=== PATIENT | male | born 1970 | race Caucasian/White ===

== ENCOUNTER 2020-02-09 13:13 | Emergency (ER) | payer BC, SELFPAY ==
[2020-02-09 13:15] VITALS: BP 174/78; PULSE 86; RESP 18; TEMP 36.2; O2SAT 99
--- NOTE | 2020-02-09 15:37 | ED.SKABFB ---
HPI - Skin/Abscess/Foreign Bdy General Chief complaint: Skin/Abscess/Foreign Body Stated complaint: SKIN ISSUES Time Seen by Provider: 02/09/20 14:44 Source: patient Mode of arrival: ambulatory Limitations: no limitations History of Present Illness HPI narrative: This is a 49-year-old male that presents the emergency department for wound to the left upper extremity for the last couple of days. Reports increasing redness and swelling. Denies drainage from the area. Reports he had one on the right side of his face which is now healed. Denies fever. Related Data Home Medications Medication Instructions Recorded Confirmed amlodipine [Norvasc] 02/09/20 02/09/20 losartan-hydrochlorothiazide tablet 02/09/20 Allergies Allergy/AdvReac Type Severity Reaction Status Date / Time No Known Allergies Allergy Verified 02/09/20 13:14 Review of Systems Review of Systems: Narrative: CONSTITUTIONAL: Denies fever SKIN: Reports erythema All systems reviewed & are unremarkable except as noted in HPI and below PMFSH Past Medical History Medical History (Updated 02/09/20 @ 15:42 by Michelle Cadena PA-C) History of depression History of hypertension Social History Social History Gender identity (if verbalized by the patient): Male Exam Narrative: Exam Narrative: GENERAL: Well-appearing, well-nourished, and in no acute distress. HEAD: Normocephalic, atraumatic. EYES: EOMI. EXTREMITIES: Normal range of motion. No edema. Left wrist with small (1.5cm) nodule that is erythematous, no drainage noted. No fluctuance SKIN: Warm, dry, no rash. NEURO: No focal deficits. Alert and oriented x3. PSYCH: Normal mood and affect Course Vital Signs Vital signs: Vital Signs Temperature 97.2 F L 02/09/20 13:15 Pulse Rate 86 02/09/20 13:15 Respiratory Rate 18 02/09/20 13:15 Blood Pressure 174/78 H 02/09/20 13:15 Pulse Oximetry 99 02/09/20 13:15 Temperature 97.2 F L 02/09/20 13:15 Pulse Rate 86 02/09/20 13:15 Respiratory Rate 18 02/09/20 13:15 Blood Pressure 174/78 H 02/09/20 13:15 Pulse Oximetry 99 02/09/20 13:15 MDM - Skin/Abscess/Foreign Bdy MDM Narrative Medical decision making narrative: Patient presents to the emergency department for a wound to the left arm. He is afebrile and nontoxic-appearing. Reports history of similar occurrence in the past. No fluctuance to suggest fluid collection. Patient will be started on oral antibiotics. He is to follow-up with primary care doctor. He was given warnings to return to the ER Critical Care Time Critical Care Time Critical Care Time: No Discharge Plan Discharge Clinical Impression: Cellulitis Qualifiers: Site of cellulitis: extremity Site of cellulitis of extremity: upper extremity Laterality: left Qualified Code(s): L03.114 - Cellulitis of left upper limb Patient Disposition: Home, Self-Care Condition: Stable Instructions: Antibiotic Form, Cellulitis (ED) Additional Instructions: Return if symptoms worsen or concerns: any increase in redness, swelling, pain, or fever over 101 Take antibiotics as directed. Clean wound with mild soapy water. Apply antibiotic ointment and clean dressing at least three times daily. Warm compresses 3 times a day for 30 minutes each Follow up with your primary care in the next 2-3 days for re-evaluation Prescriptions: New clindamycin HCl 300 mg capsule 300 mg PO Q6H 7 Days Qty: 28 RF: 0 No Action amlodipine [Norvasc] 5 mg tablet RF: 0 losartan-hydrochlorothiazide 100-12.5 mg tablet RF: 0 Follow-up/Referrals: PHYSICIAN,CHIEF OF SERVICE [Primary Care Provider] -
[2020-02-09 15:48] VITALS: BP 150/86; PULSE 100; RESP 17; O2SAT 100
== END 2020-02-09 15:49 | disposition home or self-care (01) ==
PROVIDERS: Emergency Provider Emergency Medicine
DX: L03.114 Cellulitis of left upper limb (principal); I10 Essential (primary) hypertension
CPT/HCPCS: 96372; 99283

== ENCOUNTER 2025-01-06 03:18 | Observation (INO) | payer BC, OTHER, SELFPAY ==
[2025-01-06] VITALS (24 sets, daily range): BP systolic 124–157; BP diastolic 66–102; PULSE 67–92; RESP 14–29; TEMP 36.4–36.7; O2SAT 95–100; BMI 34.9
--- NOTE | ~2025-01-06 | CT_ITS ---
Clinical Indication: Altered mental status, headache CT Scan of the Chest, Abdomen, and Pelvis with Contrast: Technique: Contiguous sections were acquired throughout the chest, abdomen, and pelvis after intraven ous administration of 100 cc of Omnipaque 350. Dose reduction technique was used on this scan by muriel randhawa automated exposure control and iterative reconstruction technique. The dose-length product (DL P) was 967.00 mGy-cm. Findings: There is no evidence of any significant mediastinal, hilar or axillary lymphadenopathy. No aortic ane urysm or dissection. There is no evidence of pleural or pericardial effusion. The lungs are clear. No pulmonary nodules or infiltrates are noted. The liver, spleen, pancreas, gallbladder, adrenals and kidneys are within normal limits. No evidence of aortic aneurysm. No lymphadenopathy. No bowel obstruction or bowel wall thickening. There is no evidence to suggest acute appendicitis. Urinary bladder is unremarkable. No pelvic mass seen. No ascites. Impression: No significant abnormalities seen. Reviewed, dictated and finalized at [facility]. Impression: No significant abnormalities seen.
--- NOTE | ~2025-01-06 | XR_ITS ---
Portable chest x-ray Comparison: 04/15/2019 Clinical History: Altered mental status Findings: Lungs are clear, without focal consolidation or pleural effusion. Cardiomediastinal silho uette is stable. Bones and soft tissues are unremarkable. Impression: Clear lungs. Reviewed, dictated and finalized at location . Impression: Clear lungs.
--- NOTE | ~2025-01-06 | MR_ITS ---
EXAMINATION: MR brain/brain stem wo/w con DATE: 01/07/2025 13:12 INDICATION: Confusion, photophobia and severe headache TECHNIQUE: Magnetic resonance imaging (MRI) of the brain and brainstem was performed without and with 20 mL Multihance intravenous contrast. Sequences included sagittal and axial T1-weighted SE, axial d iffusion-weighted FS SE, axial 3D SWAN, axial T2-weighted FLAIR, and axial T2-weighted FSE. Postcontr ast axial and coronal T1-weighted SE was obtained. Apparent diffusion coefficient (ADC) maps were cre ated. COMPARISON: None. FINDINGS: Small region of restricted diffusion consistent with acute infarct at the posterior right lentiform n ucleus. No intracranial hemorrhage or abnormal intracranial mass lesion. A few scattered small foci o f nonspecific increased T2-weighted signal intensity in the cerebral white matter, predominantly invo lving the periventricular white matter. There are no intraparenchymal signal abnormalities seen on th e other pulse sequences. The ventricles are symmetric and normal in size. There are no abnormal extra -axial fluid collections. Flow voids are seen in the cerebral arteries on the T2-weighted sequences c onsistent with their expected patency. Visualized orbits and soft tissues are unremarkable. 11 mm cys tic lesion in the left carotid gland. Small right mastoid effusion. There are no areas of abnormal en hancement on the post contrast images. IMPRESSION: 1. Small acute infarct in the posterior right lentiform nucleus. No other acute intracranial process or abnormally enhancing brain lesions. Reviewed, dictated and finalized at location A.
--- NOTE | ~2025-01-06 | CT_ITS ---
CT ANGIOGRAM NECK AND HEAD History: Altered mental status, headache. Technique: Axial noncontrast imaging of the brain was performed. Serial spiral axial images through t he head and neck were then obtained during arterial phase IV injection of 100 cc of Omnipaque 350. 3- D postprocessing and MIP images were then reconstructed on the remote workstation. Dose reduction danielle hnique was used on this scan by utilizing automated exposure control and iterative reconstruction danielle hnique. The dose-length product (DLP) was 1943.81 mGy-cm. CTA neck findings: Bilateral vertebral arteries are patent. Bilateral common carotid, internal carot id, and external carotid arteries are patent. No large vessel occlusion or stenosis. No aneurysm. The proximal right internal carotid artery demonstrates 0% stenosis relative to the normal distal artery lumen diameter. The proximal left internal carotid artery demonstrates 0% stenosis relative to the n ormal distal artery lumen diameter. CTA head findings: Distal vertebral arteries, basilar artery, and posterior superior arteries are pat ent. Distal internal carotid arteries, middle cerebral arteries, and anterior cerebral arteries are p atent. No large vessel occlusion or stenosis. No aneurysm. Axial noncontrast images of the brain is unremarkable. No acute infarct, intracranial hemorrhage or m ass lesion identified. No mass effect or midline shift. Da Silva-white differentiation intact. Ventricles and subarachnoid spaces are unremarkable. Paranasal sinuses and mastoid air cells are clear. Calvari um intact. Impression: Unremarkable exam. Reviewed, dictated and finalized at location M. Impression: Unremarkable exam.
--- NOTE | ~2025-01-06 | XR_ITS ---
EXAMINATION: XR lumbar puncture diagnostic DATE: 01/07/2025 14:00 INDICATION: Headache TECHNIQUE: The procedure including the risks and benefits was discussed with the patient. Risks discu ssed included spinal headache, cerebrospinal fluid leak, bleeding, and infection. The patient underst ood the risks and agreed to proceed. A timeout was performed to verify the patient's name, date of , and procedure to be performed. The skin overlying the midline at the L4-L5 level was prepped and draped in usual sterile fashion. Subcutaneous 1% lidocaine was used for local anesthesia. A 22 gauge spinal needle was advanced under fluoroscopic guidance. The needle was removed and the entry s ite was cleaned and dressed. There were no immediate complications. A total of 2 fluoroscopic image( s) and one crosstable lateral radiograph were obtained. The amount of fluoroscopy time used during th is procedure was 0.3 minutes.. Total DAP was 15.024 Gycm^2. There were no immediate complications. FINDINGS: Real-time fluoroscopy demonstrates the needle at the L4-L5 level. Opening pressure was 20 c m water. (Normal range is variably defined as 6-20 cm water and up to 25 cm water in obese patients. Pressure >25 cm water is one of the modified Dandy criteria for idiopathic intracranial hypertension) . 14 mL of clear, colorless fluid was collected in 4 tubes. IMPRESSION: 1. Successful fluoro-guided lumbar puncture with borderline elevated opening pressure of 20 cm water. Reviewed, dictated and finalized at location A. IMPRESSION: 1. Successful fluoro-guided lumbar puncture with borderline elevated opening pr essure of 20 cm water.
--- OUTSIDE RECORDS SUMMARY | 2025-01-06 03:20 | XMS_ITS | CONTINUITY OF CARE DOCUMENT ---
Author Name edwinkielfabio Address Unknown Organization [facility] Address [address] [address] [place] [address] Phone [phone] Care Team Providers Care Card Game Operator Name Role Phone Rony GOMEZ, Brandi Unavailable MORGAN MAIN MD Unavailable [phone] MORGAN MAIN MD Unavailable [phone] INSURANCE PROVIDERS Payer name Policy type / Coverage type [place] red republican ID [facility] Blue [facility] [id number]
--- NOTE | 2025-01-06 03:23 | ECG_ITS ---
Test Date: 2025-01-06 03:27:39 Measurements Intervals [place] Rate: 68 P: 44 OR: 169 QRS: -17 QRSD: 85 T: 171 QT: 409 QTc: 437 Interpretive Statements SINUS RHYTHM POSSIBLE LEFT ATRIAL ENLARGEMENT [-0.1mV P-WAVE IN V1/V2] POSSIBLE RIGHT VENTRICULAR CONDUCTION DELAY [RSR (QR) IN V1/V2] LEFT VENTRICULAR HYPERTROPHY AND ST-T CHANGE [VOLTAGE CRITERIA PLUS ST/T ABNORMALITY] No previous ECG available for comparison Electronically Signed On 01-06-2025 14:04:47 CDT by Daryl Wall M.D.
--- NOTE | 2025-01-06 03:30 | PC.NURSE ---
Pt instructed to use urinal to provide a urine sample. Pt attempted, but could not go at this time. Will recheck.
--- OUTSIDE RECORDS SUMMARY | 2025-01-06 03:42 | XMS_ITS | CONTINUITY OF CARE DOCUMENT ---
Author Name edwinkielfabio Address Unknown Organization [facility] Address [address] [place] [address] Phone [phone] Care Team Providers Care District Manager In Training Name Role Phone Rony GOMEZ, Brandi Unavailable [phone] MORGAN MAIN MD Unavailable [phone] MORGAN MAIN MD Unavailable [phone] INSURANCE PROVIDERS Payer name Policy type / Coverage type [place] red [employer] party ID [facility] Blue [facility] [id number]
[2025-01-06 03:47] LABS: Basophils Absolute Auto 0.1 K/mm3 (0.0-0.1); Basophils Percent Auto 0.8 % (0.2-1.2); Eosinophils Absolute Auto 0.2 K/mm3 (0-0.3); Eosinophils Percent Auto 1.7 % (0-4.4); Hematocrit 58.1 % (42.0-52.0); Hemoglobin 19.8 g/dL (14.0-18.0); Immature Granulocyte Absolute 0.09 K/mm3 (0.00-0.031); Immature Granulocyte Percent A 0.8 % (0-0.5); Lymphocytes Percent Auto 21.8 % (18.3-44.2); Mean Corpuscular HGB Conc 34.1 g/dl (32-36); Mean Corpuscular Hemoglobin 30.4 pg (26-34); Mean Corpuscular Volume 89.2 fl (80-100); Monocytes Absolute Auto 1.1 K/mm3 (0.1-0.6); Monocytes Percent Auto 9.8 % (2.6-8.5); Neutrophils Absolute Auto 7.5 K/mm3 (1.3-6.7); Neutrophils Percent Auto 65.1 % (45.5-73.1); Platelet Count Result 243 k/mm3 (150-375); Red Blood Count 6.51 M/mm3 (4.6-6.20); Red Cell Distribution Width 16.1 % (11.5-14.5); White Blood Count 11.5 K/mm3 (4.5-10.0)
[2025-01-06 03:56] LABS: Alanine Aminotransferase 74 U/L (6-50); Albumin Level 3.3 g/dL (3.5-5.1); Alkaline Phosphatase 68 U/L (38-126); Anion Gap 5 mmol/L (4-12); Aspartate Amino Transferase 55 U/L (17-59); Blood Urea Nitrogen 16 mg/dL (9-20); Calcium 8.2 mg/dL (8.4-10.2); Carbon Dioxide 24 mmol/L (22-30); Chloride 102 mmol/L (98-107); Estimated CRCL calculation 84 ml/min; Estimated Glomerular Filt Rate > 60; Glucose 125 mg/dL (65-110); Potassium 3.8 mmol/L (3.4-5.0); Sodium 131 mmol/L (137-145)
--- NOTE | 2025-01-06 04:03 | ED.AMS ---
HPI - Altered Mental Status General Chief Complaint: Altered Mental Status Stated Complaint: headache and confusion Time Seen by Provider: 01/06/25 03:28 Source: patient and family () Mode of arrival: ambulatory Limitations: no limitations History of Present Illness HPI narrative: Patient presents with report of sudden onset headache starting while at work, approximtaely 24 hours ago. 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 Described it as the worst headache he has ever had. Does not usually get headaches. Associated with nausea and photophobia. Also with confusion, noting some vision changes but also having difficulty remembering/entering passwords. notes he usually uses very precise language in texts but was making grammatical errors which is very unusual for him. She has not been sick. No slurred speech. Not on anticoagulation. Once home, he kept repetitively asking her the date/day of the week which again, is unusual. He also couldn't find his phone and said he would have to go back to the station to retrieve it but it was right beside him. Has had stressors lately with son visiting and mother from [place] visiting, also a 22yo nephrew recently diagnosed with cancer. Works out regularly. History of HTN on medications. Initailly denied chest pain or shortness of breath. States vision a little blurred, possibly double. Phonophobia. POssibly some abdominal pain occasionally. Denies neck pain or fever. Related Data Home Medications ?Medication ?Instructions ?Recorded ?Confirmed ?Last Taken ?Type amlodipine 5 mg tablet (Norvasc) 5 mg PO DAILY 02/09/20 01/06/25 Unknown History losartan 100 1 tablet PO DAILY 02/09/20 01/06/25 01/06/25 History mg-hydrochlorothiazide 12.5 mg tablet Allergies Allergy/AdvReac Type Severity Reaction Status Date / Time No Known Allergies Allergy Verified 01/06/25 03:37 [facility] Past Medical History Medical History History of depression History of hypertension Family History Family History Father Cerebrovascular accident Social History Social History Social History: Smoking status: Never smoker Substance use: never Do You Feel Safe in your Home?: Yes Lack of Transportation: No Lack of Food: Never True Current Housing: I Have Housing Concerned About Future Housing: No Difficulty Paying Gas/Electric Bills: No Difficulty Paying for Meds: No Currently Unemployed: No Education: Bachelor's Degree Difficulty w/ Childcare or Family Care: No Living arrangements: with family Additional living arrangements comments: Occupation/Education: occupation Additional occupation/education comments: police department Gender identity (if verbalized by the patient): Male Spiritual care concerns: No Exam Narrative: GENERAL: well-nourished, HEAD: Normocephalic, atraumatic. EYES: Non injected, non icteric. PERRL, 5mm in dark room. EOMI. Difficult to assess visual ledesma , patient having difficulty following commands to look straight ahead rather than at fingers ENT: Nares clear, no rhinorrhea or epistaxis. Gross auditory acuity intact. NECK: Supple. No meningismus. CHEST: Speaking in full sentences. No respiratory distress. HEART: Regular rate and rhythm. . ABDOMEN: Soft, nondistended. EXTREMITIES: Normal range of motion. No lower extremity edema. SKIN: Warm, dry, no rash. NEURO: No focal deficits. Alert and oriented. Answering questions. Following commands though with some difficulty understanding the visual field instructions. Normal speech without aphasia or dysarthria. No motor drift x4. Occasionally repetitive speech. No ataxia on finger nose finger. No facial palsy. Sensation intact throughout. PSYCH: Normal mood and affect. Course Vital Signs Vital signs: Vital Signs Temperature 97.7 F 01/06/25 03:24 Pulse Rate 69 01/06/25 03:24 Respiratory Rate 22 H 01/06/25 03:24 Blood Pressure 154/100 H 01/06/25 03:24 Oxygen Delivery Room Air 01/06/25 03:24 Temperature 97.6 F 01/08/25 03:50 Pulse Rate 95 01/08/25 06:17 Respiratory Rate 16 01/08/25 03:50 Blood Pressure 121/75 01/08/25 03:50 Pulse Oximetry 94 01/08/25 03:50 Oxygen Delivery Room Air 01/08/25 04:00 Fraction of Inspired Oxygen 21 01/06/25 21:24 MDM - Altered Mental Status MDM Narrative Medical decision making narrative: Patient presents with sudden headache and dizziness while working out. Associated with photophobia and phonophobia. Worst headache of life. Confusion per patient and . In the emergency department he is afebrile with vital signs notable for hypertension and mild tachypnea. Leukocytosis and a possible degree of hemoconcentration given hemoglobin and hematocrit are both elevated. Patient has hyponatremia but not to a degree to suggest the level of confusion/altered mentation he is experiencing. He has chronically been slightly hyponatremic so the delta from previous is not significant either. ALT elevation. Calcium corrects to normal given his hypoalbuminemia. Mild elevation CPK. NSTEMI given troponin. Will order 3 hour troponin but defer administering aspirin at this time. BNP mildly elevated though not to a degree to suggest acute heart failure based on the reference range of the assay for patient's age. Patient states perhaps he was a bit winded with some chest achiness yesterday around the time of working out but not significantly. No clear etiology for his symptoms has been determined and for this reason, recommend patient be admitted for further work up. Discussed with patient and the concerns. Through shared decision making, in agreement with proceeding with work up and admission. Confirmed a radiologist available for LP. DIscussed patient with Dr Soriano, neurology who concurs with proceeding with LP and MRI. Antibiotics ordered to cover meningitis, bacterial and viral. Discussed patient with classification control clerk shoemaking cutter Dr Wall in regards to NSTEMI but contraindication to initiating heparin drip at this time. in agreement. Patient discussed with classification control clerk hospitalist Dr Vidal who accepts admission. Differential Diagnosis Differential diagnosis: Likely alcoholic intoxication, altered mental status, delirium, hypoglycemia, hyponatremia, subarachnoid hemorrhage and other (PRESS, hypertensive encephalopathy; considered meningitis (but afebrile) ; CO poisoning less likely ( w/o symptoms); thyroid dysfunction; CVA; considered less benign causes (migraine, tension/cluster); encephalopathy/encephalitis) Lab Data Attestation: I reviewed the patient's lab results. 01/07/25 04:22 01/08/25 04:23 Labs: Lab Results 01/06/25 01/06/25 01/06/25 Range/Units 03:39 04:23 05:19 WBC 11.5 H (4.5-10.0) K/mm3 RBC 6.51 H (4.6-6.20) M/mm3 Hgb 19.8 H (14.0-18.0) g/dL Hct 58.1 H (42.0-52.0) % MCV 89.2 (80-100) fl MCH 30.4 (26-34) pg MCHC 34.1 (32-36) g/dl RDW 16.1 H (11.5-14.5) % Plt Count 243 (150-375) k/mm3 MPV 11.0 H (7.4-10.4) fl Immature Gran % (Auto) 0.8 H (0-0.5) % Neut % (Auto) 65.1 (45.5-73.1) % Lymph % (Auto) 21.8 (18.3-44.2) % [place] % (Auto) 9.8 H (2.6-8.5) % Eos % (Auto) 1.7 (0-4.4) % Baso % (Auto) 0.8 (0.2-1.2) % Lymph # (Auto) 2.50 (0.9-3.2) K/mm3 [place] # (Auto) 1.1 H (0.1-0.6) K/mm3 Eos # (Auto) 0.2 (0-0.3) K/mm3 Baso # (Auto) 0.1 (0.0-0.1) K/mm3 Abs Immat Gran (auto) 0.09 H (0.00-0.031) K/mm3 Absolute Neuts (auto) 7.5 H (1.3-6.7) K/mm3 Absolute Nucleated RBC 0.000 (0.0-0.012) K/mm3 Nucleated RBC % 0.0 (0.0-0.2) % PT 15.1 H (11.1-14.7) Seconds INR 1.2 APTT 30.4 (22.3-36.8) Seconds Sodium 131 L (137-145) mmol/L Potassium 3.8 (3.4-5.0) mmol/L Chloride 102 (98-107) mmol/L Carbon Dioxide 24 (22-30) mmol/L Anion Gap 5 (4-12) mmol/L BUN 16 (9-20) mg/dL Creatinine 1.11 (0.7-1.3) mg/dL Estim Creat Clear Calc 84 ml/min Estimated GFR > 60 (59 - ) Glucose 125 H (65-110) mg/dL POC Capillary Glucose 128 H (65-105) mg/dl Lactic Acid 0.9 (0.7-2.0) mmol/L Calcium 8.2 L (8.4-10.2) mg/dL Total Bilirubin 1.0 (0.2-1.3) mg/dL AST 55 (17-59) U/L ALT 74 H (6-50) U/L Alkaline Phosphatase 68 (38-126) U/L Ammonia 27 (9-30) umol/L Total Creatine Kinase 298 H (55-170) U/L Troponin I 0.049 H* (0.000-0.034) ng/mL NT-Pro-B Natriuret Pep 456 H (19.9-100) pg/mL Total Protein 6.0 L (6.3-8.2) g/dL Albumin 3.3 L (3.5-5.1) g/dL TSH 2.800 (0.465-4.680) uIU/mL Urine Color (Yellow) Urine Appearance (Clear) Urine pH (5.0-9.0) Ur Specific [place] (1.001-1.035) Urine Protein (Negative) mg/dL Urine Glucose (UA) (Negative) mg/dL Urine Ketones (Negative) mg/dL Ur Blood (Man) (Negative) Urine Nitrate (Negative) Urine Bilirubin (Negative) Urine Urobilinogen (<2.0) mg/dL Leukocyte Esterase Rfl (Negative) KENDALL/UL Urine RBC (0-2) /hpf Urine WBC (0-3) /hpf Ur Squamous Epith Cells (Few) /hpf Urine Bacteria /hpf Urine Casts Salicylates < 1.0 L (2-20) mg/dL Urine Opiates Screen (Negative) Urine Methadone Screen (Negative) Acetaminophen < 10 L (10-30) ug/mL Ur Barbiturates Screen (Negative) Ur Phencyclidine Scrn (Negative) Ur Amphetamine Screen (Negative) U Benzodiazepines Scrn (Negative) Urine Cocaine Screen (Negative) U Cannabinoids Screen (Negative) Ethyl Alcohol < 10 (<10) mg/dL Influenza A (RT-PCR) (Negative) Influenza B (RT-PCR) (Negative) RSV (RT-PCR) (Negative) SARS-CoV-2 RNA (RT-PCR) (Negative) 01/06/25 01/06/25 Range/Units 05:30 06:40 WBC (4.5-10.0) K/mm3 RBC (4.6-6.20) M/mm3 Hgb (14.0-18.0) g/dL Hct (42.0-52.0) % MCV (80-100) fl MCH (26-34) pg MCHC (32-36) g/dl RDW (11.5-14.5) % Plt Count (150-375) k/mm3 MPV (7.4-10.4) fl Immature Gran % (Auto) (0-0.5) % Neut % (Auto) (45.5-73.1) % Lymph % (Auto) (18.3-44.2) % [place] % (Auto) (2.6-8.5) % Eos % (Auto) (0-4.4) % Baso % (Auto) (0.2-1.2) % Lymph # (Auto) (0.9-3.2) K/mm3 [place] # (Auto) (0.1-0.6) K/mm3 Eos # (Auto) (0-0.3) K/mm3 Baso # (Auto) (0.0-0.1) K/mm3 Abs Immat Gran (auto) (0.00-0.031) K/mm3 Absolute Neuts (auto) (1.3-6.7) K/mm3 Absolute Nucleated RBC (0.0-0.012) K/mm3 Nucleated RBC % (0.0-0.2) % PT (11.1-14.7) Seconds INR APTT (22.3-36.8) Seconds Sodium (137-145) mmol/L Potassium (3.4-5.0) mmol/L Chloride (98-107) mmol/L Carbon Dioxide (22-30) mmol/L Anion Gap (4-12) mmol/L BUN (9-20) mg/dL Creatinine (0.7-1.3) mg/dL Estim Creat Clear Calc ml/min Estimated GFR (59 - ) Glucose (65-110) mg/dL POC Capillary Glucose (65-105) mg/dl Lactic Acid (0.7-2.0) mmol/L Calcium (8.4-10.2) mg/dL Total Bilirubin (0.2-1.3) mg/dL AST (17-59) U/L ALT (6-50) U/L Alkaline Phosphatase (38-126) U/L Ammonia (9-30) umol/L Total Creatine Kinase (55-170) U/L Troponin I 0.048 H* (0.000-0.034) ng/mL NT-Pro-B Natriuret Pep (19.9-100) pg/mL Total Protein (6.3-8.2) g/dL Albumin (3.5-5.1) g/dL TSH (0.465-4.680) uIU/mL Urine Color Dark yellow (Yellow) Urine Appearance Clear (Clear) Urine pH 6.0 (5.0-9.0) Ur Specific [place] > 1.045 H (1.001-1.035) Urine Protein 3+ H (Negative) mg/dL Urine Glucose (UA) 2+ H (Negative) mg/dL Urine Ketones Trace H (Negative) mg/dL Ur Blood (Man) Negative (Negative) Urine Nitrate Negative (Negative) Urine Bilirubin Negative (Negative) Urine Urobilinogen 2.0 H (<2.0) mg/dL Leukocyte Esterase Rfl Negative (Negative) KENDALL/UL Urine RBC 0-2 (0-2) /hpf Urine WBC 0-5 (0-3) /hpf Ur Squamous Epith Cells None seen (Few) /hpf Urine Bacteria None seen /hpf Urine Casts 0-2 Salicylates (2-20) mg/dL Urine Opiates Screen Negative (Negative) Urine Methadone Screen Negative (Negative) Acetaminophen (10-30) ug/mL Ur Barbiturates Screen Negative (Negative) Ur Phencyclidine Scrn Negative (Negative) Ur Amphetamine Screen Negative (Negative) U Benzodiazepines Scrn Negative (Negative) Urine Cocaine Screen Negative (Negative) U Cannabinoids Screen Negative (Negative) Ethyl Alcohol (<10) mg/dL Influenza A (RT-PCR) Negative (Negative) Influenza B (RT-PCR) Negative (Negative) RSV (RT-PCR) Negative (Negative) SARS-CoV-2 RNA (RT-PCR) Negative (Negative) Imaging Data Attestation: I personally reviewed and interpreted this imaging study as follows: My impression: Borderline cardiomegaly Radiologist's impression: Impression: Unremarkable exam. Impression: Clear lungs. Impression: No significant abnormalities seen. ECG Data EKG #1: Attestation: I personally reviewed and interpreted this ECG as follows: ECG completion date: 01/06/25 ECG completion time: 03:27 Interpretation: Normal sinus rhythm at a rate of 68 beats per minute. DE interval 169. QRS 85. QT/QTC 409/427. Good R-wave progression across the precordial leads. T-wave inversion in 2 but otherwise upright and normal in contiguous inferior leads 3 and AVF. T-wave inversion in V6. Pre populated algorithm suggests left ventricular hypertrophy; S wave depth in V1 + tallest R wave height in V5-6 is <35mm but R wave in lead I + S wave in lead III is approximately 25mm. EKG #2: Attestation: I personally reviewed and interpreted this ECG as follows: ECG completion date: 01/06/25 ECG completion time: 06:39 Interpretation: Normal sinus rhythm at a rate of 69 beats per minute. DE interval 167. QRS 86. QT/QTC 421/439. Good R-wave progression across the precordial leads. T-wave biphasic in V5 and inverted in V6. Discharge Plan Discharge Clinical Impression: Headache, Elevated ALT measurement, Elevated hemoglobin, Hypoalbuminemia, Non-ST elevation RI (NSTEMI), Encephalopathy, Photophobia Patient Disposition: Still a Patient Condition: Stable
[2025-01-06 04:04] LABS: INR 1.2; Prothrombin Time 15.1 Seconds (11.1-14.7)
[2025-01-06 04:05] LABS: Partial Thromboplastin Time 30.4 Seconds (22.3-36.8)
[2025-01-06 04:20] LABS: Acetaminophen < 10 ug/mL (10-30); Creatine Kinase 298 U/L (55-170); Ethanol < 10 mg/dL (<10); Salicylate < 1.0 mg/dL (2-20)
[2025-01-06 04:38] LABS: Troponin I 0.049 ng/mL (0.000-0.034)
--- NOTE | 2025-01-06 04:40 | PC.NURSE ---
Pt reports to this RN that pt told her his hands were numb. Pt at scan at this time. EDP notified. Will assess when pt returns.
[2025-01-06 04:42] LABS: Ammonia 27 umol/L (9-30); Lactic Acid Reflex 0.9 mmol/L (0.7-2.0)
[2025-01-06 05:23] LABS: Glucose Point of Care 128 mg/dl (65-105)
[2025-01-06] MEDS: MORPHINE SULFATE (*CRX) 4 MG/ML INJ IV PUSH (05:45)
[2025-01-06 05:47] LABS: Add Urine Microscopic? YES; Appearance Urine Clear (Clear); Bacteria Urine None Seen /hpf; Bilirubin Urine Negative (Negative); Blood Urine Negative (Negative); Color Urine Dark Yellow (Yellow); Glucose Urine UA 2+ mg/dL (Negative); Ketones Urine Trace mg/dL (Negative); Leukocyte Esterase Ur Negative LEU/UL (Negative); Nitrate Urine Negative (Negative); Non Pathogenic Casts 0-2; Protein Urine 3+ mg/dL (Negative); RBC Urine 0-2 /hpf (0-2); Specific Grav Ur > 1.045 (1.001-1.035); Squamous Epithelial Cell Urine None Seen /hpf (Few); WBC Urine 0-5 /hpf (0-3)
[2025-01-06 05:51] LABS: NT Pro B Type Natriuretic Pept 456 pg/mL (19.9-100)
[2025-01-06 05:57] LABS: Amphetamine Screen Urine Negative (Negative); Barbiturate Screen Urine Negative (Negative); Benzodiazepines Screen Urine Negative (Negative); Cannabinoid Screen Urine Negative (Negative); Cocaine Screen Urine Negative (Negative); Methadone Screen Urine Negative (Negative); Opiate Screen Urine Negative (Negative); Phencyclidine Screen Urine Negative (Negative)
[2025-01-06 06:18] LABS: Influenza A QL RT-PCR Negative (Negative); Influenza B QL RT-PCR Negative (Negative); RSV RNA, RT-PCR Negative (Negative); SARS-CoV-2 RNA PCR Negative (Negative)
--- NOTE | 2025-01-06 06:34 | ECG_ITS ---
Test Date: 2025-01-06 06:39:04 Measurements Intervals [place] Rate: 69 P: 43 CT: 167 QRS: -15 QRSD: 86 T: 169 QT: 421 QTc: 451 Interpretive Statements SINUS RHYTHM POSSIBLE LEFT ATRIAL ENLARGEMENT [-0.1mV P-WAVE IN V1/V2] LEFT VENTRICULAR HYPERTROPHY AND ST-T CHANGE [VOLTAGE CRITERIA PLUS ST/T ABNORMALITY] Compared to ECG 01/06/2025 03:27:39 No significant changes Electronically Signed On 01-06-2025 14:06:10 CDT by Daryl Wall M.D.
[2025-01-06 07:22] LABS: Troponin I 0.048 ng/mL (0.000-0.034)
[2025-01-06] MEDS: dexAMETHasone SOD PHOS INJ 10 MG/ML 1 ML VIAL IV PUSH ×3 (09:12→20:48)
[2025-01-06] MEDS: diphenhydrAMINE HCl INJ 50 MG/ML VIAL 25 MG IV PUSH (09:12)
[2025-01-06] MEDS: KETOROLAC 15 MG/ML VIAL (*BKC) IV PUSH (09:13)
[2025-01-06] MEDS: cefTRIAXone 2 GM/NS 100 ML 2 GM/100 ML BAG IVPB (10:13)
[2025-01-06] MEDS: PROCHLORPERAZINE EDISYLATE 10 MG/2 ML VIAL 5 MG IV PUSH (10:14)
--- NOTE | 2025-01-06 10:15 | PC.NURSE ---
Pt requests to stay in home tshirt at this time.
[2025-01-06] MEDS: AMPICILLIN 2 GM/NS 100 ML 2 GM/100 ML BAG IVPB ×4 (11:06→20:51)
--- NOTE | 2025-01-06 11:13 | PC.NURSE ---
bedside shift report received from Rosa CORREA, taking over patient care at this time
[2025-01-06] MEDS: ACYCLOVIR SODIUM IVPB 1,000 MG in DEXTROSE 5% IN WATER 250 ML 250 MG IVPB ×2 (12:06→17:28)
[2025-01-06] MEDS: VANCOMYCIN 1,250 MG/NS 250 ML 1,250 MG/250 ML BAG 166.67 MG IVPB ×2 (13:28)
[2025-01-06] MEDS: LORazepam INJ (*CRX) 2 MG/ML VIAL 1 MG IV PUSH (14:47)
--- NOTE | 2025-01-06 15:13 | P.HP_ITS ---
H&P: HPI History of Present Illness Date/Time: 01/06/25 15:13 Chief Complaint: Headache, Dizziness Narrative: 54 y/o M with PMH of hypertension and depression presents here with splitting headache, dizziness, and confusion. The patient presents here from home for further evaluation of headache, dizziness, and confusion. He reports onset around midnight on Sunday (01/04). He was working out when you developed a headache and tingling to his hands/forearms. Symptoms persisted into Sunday and did not improve. Patient's provided collateral, reports the patient was texting her and did not make sense Sunday night. He could not remember his passwords that night. He also repeatedly asked her what day it was. He describes the headache as the worst headache he has ever had/does not normally get headaches, temporal, nonradiating, constant, and no alleviating or aggravating factors. Initial VS at presentation: 97.7? F, HR 69, R 22, 154/100, and 98% on RA. ED workup showed: WBC 11.5, hemoglobin 19.8 (previously 17.2 in 2019), sodium 131, glucose 125, calcium 8.2/albumin 3.3, initial troponin 0.049, CK 298, BNP 456 (normal for age), UA showed high specific gravity/3+ protein/2+ glucose/trace ketones/2.0 urobilinogen, UDS negative, salicylates and acetaminophen negative, viral PCR negative. Head/neck CTA was unremarkable. CXR showed clear lungs. CTA chest/abdomen/pelvis showed no significant abnormalities. Review of Systems Review of Systems: All systems reviewed & are unremarkable except as noted in HPI and below [facility] Past Medical History Medical History History of depression History of hypertension Family History Family History Father Cerebrovascular accident Social History Social History Smoking status: Never smoker Substance use: never Do You Feel Safe in your Home?: Yes Lack of Transportation: No Lack of Food: Never True Current Housing: I Have Housing Concerned About Future Housing: No Difficulty Paying Gas/Electric Bills: No Difficulty Paying for Meds: No Currently Unemployed: No Education: Bachelor's Degree Difficulty w/ Childcare or Family Care: No Gender identity (if verbalized by the patient): Male Spiritual care concerns: No Meds Home Medications and Allergies Home Medications ?Medication ?Instructions ?Recorded ?Confirmed ?Type amlodipine 5 mg tablet (Norvasc) 5 mg PO DAILY 02/09/20 01/06/25 History losartan 100 1 tablet PO DAILY 02/09/20 01/06/25 History mg-hydrochlorothiazide 12.5 mg tablet Allergies Allergy/AdvReac Type Severity Reaction Status Date / Time No Known Allergies Allergy Verified 01/06/25 03:37 Vital Signs Vital Signs - 24 hr 01/06/25 03:24 01/06/25 03:32 01/06/25 03:46 Temperature 97.7 F Pulse Rate 69 69 Respiratory Rate 22 H 28 H Blood Pressure 154/100 H 142/102 H Pulse Oximetry 98 95 Oxygen Delivery Room Air Room Air 01/06/25 04:01 01/06/25 04:16 01/06/25 05:01 Temperature Pulse Rate 72 70 67 Respiratory Rate 26 H 27 H 15 Blood Pressure 139/102 H 143/100 H 144/95 H Pulse Oximetry 95 95 98 Oxygen Delivery 01/06/25 05:15 01/06/25 05:32 01/06/25 06:01 Temperature Pulse Rate 70 68 70 Respiratory Rate 14 18 19 Blood Pressure 140/96 H 139/92 H Pulse Oximetry 97 98 97 Oxygen Delivery 01/06/25 06:30 01/06/25 07:45 01/06/25 08:00 Temperature Pulse Rate 75 71 70 Respiratory Rate 22 H 17 18 Blood Pressure Pulse Oximetry 97 96 Oxygen Delivery 01/06/25 08:15 01/06/25 08:17 01/06/25 08:30 Temperature Pulse Rate 74 71 76 Respiratory Rate 29 H 25 H 16 Blood Pressure 133/102 H Pulse Oximetry 98 98 Oxygen Delivery 01/06/25 08:32 01/06/25 10:15 01/06/25 12:30 Temperature 98.0 F 97.9 F Pulse Rate 74 83 81 Respiratory Rate 18 20 18 Blood Pressure 151/74 H 157/80 H 140/76 Pulse Oximetry 98 96 97 Oxygen Delivery Exam Const: General: comfortable and no acute distress Other: , male, nontoxic appearance HENMT: Face/Nose/Sinus: Normal nares present Mouth: Yes moist mucous membranes Eyes: General: appearance normal, both eyes and all related structures Sclera: sclerae normal Pupils: Equal, round and reactive pupils present EOM: EOMs intact bilaterally Resp: Effort & Inspection: normal respiratory effort Auscultation: clear to auscultation bilaterally Cardio: Rate: regular rate Rhythm: regular rhythm Other: S1-S2 present without murmur, rub, ectopy GI: Other: Abdomen soft, nondistended, nontender. Normoactive bowel sounds in all quadrants. Skin: General skin exam: normal color and no rashes or lesions noted Wounds: no wounds Neuro: Speech: normal speech Motor exam (neuro): 5/5 motor strength present throughout Sensory Exam: normal sensation Other: A&O x4, anxious and restless Extrem: General: normal to inspection Psych: Mental Status: mental status grossly normal Affect: Anxious affect present Other: Good insight judgment, pleasant H&P: Results Labs Labs: Short CBC 01/06/25 Range/Units 03:39 WBC 11.5 H (4.5-10.0) K/mm3 Hgb 19.8 H (14.0-18.0) g/dL Hct 58.1 H (42.0-52.0) % Plt Count 243 (150-375) k/mm3 BMP 01/06/25 03:39 Sodium 131 L Potassium 3.8 Chloride 102 Carbon Dioxide 24 BUN 16 Creatinine 1.11 Glucose 125 H Calcium 8.2 L Cardiac Enzymes 01/06/25 01/06/25 Range/Units 03:39 06:40 Total Creatine Kinase 298 H (55-170) U/L Troponin I 0.049 H* 0.048 H* (0.000-0.034) ng/mL Liver Function 01/06/25 Range/Units 03:39 Total Bilirubin 1.0 (0.2-1.3) mg/dL AST 55 (17-59) U/L ALT 74 H (6-50) U/L Alkaline Phosphatase 68 (38-126) U/L Albumin 3.3 L (3.5-5.1) g/dL Urine 01/06/25 Range/Units 05:30 Urine Color Dark yellow (Yellow) Urine Appearance Clear (Clear) Urine pH 6.0 (5.0-9.0) Ur Specific [place] > 1.045 H (1.001-1.035) Urine Protein 3+ H (Negative) mg/dL Urine Glucose (UA) 2+ H (Negative) mg/dL Assessment and Plan Assessment and plan (1) AMS (altered mental status): Qualifiers: Altered mental status type: disorientation Qualified Code(s): R41.0 - Disorientation, unspecified Code(s): R41.82 - Altered mental status, unspecified Status: Acute Assessment and Plan: Intermittent AMS since Sunday on 01/04 around midnight. - Head/Neck CTA: unremarkable exam - Brain MRI completed, awaiting read - LP completed, awaiting results - started on prophylactic medications for meningitis (viral and bacterial): Acyclovir, ampicillin, vancomycin - dexamethasone q.6 - neuro checks q.4 - UA not consistent with UTI - CXR showed clear lungs - CTA chest/abdomen/pelvis was unremarkable (2) Non-ST elevation DE (NSTEMI): Code(s): I21.4 - Non-ST elevation (NSTEMI) myocardial infarction Status: Acute Assessment and Plan: - EKG, initial: Sinus rhythm, possible left atrial enlargement, possible right ventricular conduction delay, LVH and ST-T change - EKG, repeat (1): No significant changes when compared to previous EKG - Troponin: 0.049 -> 0.048, third ordered - cardiology consulted, awaiting recs - nitro SL prn - telemetry monitoring (3) Elevated hemoglobin: Code(s): D58.2 - Other hemoglobinopathies Status: Acute Assessment and Plan: - Hgb 19.8, previously 16.4 - 17.5 - coupled with high specfic gravity and ketones in the urine, suspect mild dehydration. Rehydrate with LR at 100 mL/hr x2L - monitor (4) HTN (hypertension): Qualifiers: Hypertension type: primary hypertension Qualified Code(s): I10 - Essential (primary) hypertension Code(s): I10 - Essential (primary) hypertension Status: Chronic Assessment and Plan: - chronic, currently 124/74 - continue home medications: Amlodipine, losartan, hydrochlorothiazide - monitor Plan Diet: Heart healthy GI Prophylaxis: Not currently indicated DVT Prophylaxis: Lovenox SQ IV fluids: LR 100 mL/hour x2 L Lines/Tubes: Peripheral IV Code Status: Full code Quality VTE Prophylaxis VTE prophylaxis: pharmacologic ordered Hospitalist MIPS Advance Care Plan I have confirmed that the patient's Advanced Care Plan is present, code status is documented, or surrogate decision maker is listed in patient medical record.: Yes Medication Reconciliation I have utilized all available resources to obtain, update and review the patients current medications (includes all prescriptions, OTC, herbals, cannabis, and nutritional supplements).: Yes
[2025-01-06] MEDS: LACTATED RINGERS 1,000 ML 100 ML IV CONT (17:07)
--- NOTE | 2025-01-06 17:56 | ADMGEN ---
This patient, Delio Jaime, was admitted to IMU Room 213-01 at 1230. Patient/family oriented to hospital policies and general routines including ID bracelet, bed and alarms, visiting hours, pain management, procedures, bathroom and other care routines, personal items, smoking policy, room service/diet, and visiting hours. Information on how to activate the Rapid Response Team has been discussed. Patient/Family are encouraged to report perceived risks to care and to ask questions if they do not understand what they are told or what they should do.
[2025-01-06] MEDS: VANCOMYCIN 1,500 MG/NS 500 ML 1,500 MG/500 ML BAG 250 MG IVPB (21:38)
[2025-01-07] VITALS (18 sets, daily range): BP systolic 115–165; BP diastolic 63–92; PULSE 76–100; RESP 16–24; TEMP 36.5–36.8; O2SAT 94–100
--- NOTE | 2025-01-07 | ECHO_ITS ---
Patient Info Name: Delio Jaime Age: 54 years : 1970 Gender: Male Ht: 69 in Wt: 237 lbs BSA: 2.33 m2 HR: 85 bpm BP: 143 / 68 mmHg Heart Rhythm: Sinus Rhythm Technical Quality: Good Exam Date: 01/07/2025 2:33 PM Patient Status: O Admit Date: 01/06/2025 Exam Type: CA echo doppler w bubble study elevated troponin, CVA bubble add on per Dr. Taiwo Vidal. Complete two-dimensional, color flow and Doppler transthoracic echocardiogram is performed with agitated saline. Staff Referring Physician: Olamide Augustin Machine Design Teacher: Dayna Monroy Attending Provider: Taiwo Vidal MD Contrast/Agitated Saline Contrast/Ag. Saline: Agitated Saline Amount: 16.00 ml Existing IV Access: Yes IV Access Condition: patent with no signs of infiltration Summary 1. There is normal biventricular size and systolic function. 2. The mitral valve leaflets are sclerotic but opens well. There is mild mitral regurgitation. The anterior mitral valve leaflet is elongated. There is no significant LVOT obstruction. 3. Normal inferior vena cava with >50% collapse upon inspiration consistent with normal right atrial pressure, 3 mmHg. 4. The atrial septum is normal by color Doppler. There is no [id number] shunt by bubble study. Left Ventricle The left ventricle is normal in size and systolic function. There is concentric left ventricular remodeling. The left ventricular ejection fraction is visually estimated to be 65-70%. Right Ventricle The right ventricle is normal in size and systolic function. Left Atria The left atrium is mildly dilated. Right Atria The right atrium is normal size. Atrial Septum The atrial septum is normal by color Doppler. There is no [id number] shunt by bubble study. Aortic Valve The aortic valve opens well. There is no aortic regurgitation. Pulmonic Valve The pulmonic valve is not well visualized. Mitral Valve The mitral valve leaflets are sclerotic but opens well. There is mild mitral regurgitation. The anterior mitral valve leaflet is elongated. There is no significant LVOT obstruction. Tricuspid Valve The tricuspid valve is normal. There is trace tricuspid regurgitation. Pericardium/Pleural Pericardium is normal in appearance with no evidence for significant pericardial effusion. Inferior Vena Cava Normal inferior vena cava with >50% collapse upon inspiration consistent with normal right atrial pressure, 3 mmHg. Aorta The aortic root at the level of the sinus of Valsalva measures 3.4 cm in diameter. Left Ventricular Outflow Tract Name Value Normal LVOT 2D LVOT Diameter 1.8 cm LVOT Doppler LVOT Peak Velocity 126 cm/s LVOT Peak Gradient 6 mmHg LVOT Mean Gradient 4 mmHg LVOT VTI 20 cm LVOT VTI/AV VTI Ratio 0.9 LVOT Stroke Volume 52 ml LVOT CO 2.3 l/min LVOT CI 1.0 l/min/m2 Mitral Valve Name Value Normal MV Regurgitation Doppler MR Peak Gradient 65 mmHg MV Diastolic Function MV E Peak Velocity 117 cm/s MV A Peak Velocity 53 cm/s MV E/A 2.2 MV Decel Time (PW) 172 ms MV Annular TDI MV E/e' (Septal) 18.3 MV E/e' (Lateral) 15.3 MV E/e' (Average) 16.8 Tricuspid Valve Name Value Normal TV Regurgitation Doppler TR Peak Velocity 418 cm/s TR Peak Gradient 70 mmHg Estimated PAP/RSVP RA Pressure 3 mmHg <=5 PA Systolic Pressure 73 mmHg <36 RV Systolic Pressure 73 mmHg <36 TV Annular TDI TV Lateral Kailey s' Velocity 13.9 cm/s >=9.5 Aortic Valve Name Value Normal AV Doppler AV Peak Velocity 124 cm/s AV Peak Gradient 6 mmHg AV Mean Gradient 4 mmHg AV VTI 23 cm AV Area (Cont Eq VTI) 2.3 cm2 >=3.0 AV Area (Cont Eq Nico) 2.7 cm2 AV DI (Nico) 1.01 AV Regurgitation 2D LVOT Area 2.7 cm2 Ventricles Name Value Normal LV Dimensions 2D/MM IVS Diastolic Thickness (2D) 1.4 cm 0.6-1.0 LVID Diastole (2D) 4.8 cm 4.2-5.8 LVIW Diastolic Thickness (2D) 1.0 cm 0.6-1.0 LVID Systole (2D) 3.6 cm 2.5-4.0 LVOT Diameter 1.8 cm LV Mass (2D Cubed) 218.65 g 88.00-224.00 LV Mass Index (2D Cubed) 94 g/m2 49-115 Relative Wall Thickness (2D) 0.44 <=0.42 LV Fractional Shortening/Ejection Fraction 2D/MM LV Fractional Shortening (2D) 25 % 25-43 LV EF (2D Teichholz) 49 % LV Diastolic Volume (4C MOD) 101 ml LV EF (4C MOD) 59 % LV Diastolic Volume (2C MOD) 107 ml LV EF (2C MOD) 57 % LV Diastolic Volume (BP MOD) 105 ml 62-150 LV Diastolic Volume Index (BP MOD) 45 ml/m2 34-74 LV Systolic Volume (BP MOD) 45 ml 21-61 LV Systolic Volume Index (BP MOD) 19 ml/m2 11-31 LV EF (BP MOD) 57 % 52-72 LV Diastolic Length (4C) 10.2 cm LV Systolic Length (4C) 9.1 cm LV Stroke Volume (4C MOD) 59 ml Atria Name Value Normal LA Dimensions LA Volume (4C A-L) 86 ml LA Volume (BP A-L) 77 ml RA Dimensions RA Systolic Major [place] Length (4C) 5.2 cm 2.1-2.7 RA Area (4C) 18.5 cm2 <=18.0 Report Signatures
[2025-01-07] MEDS: AMPICILLIN 2 GM/NS 100 ML 2 GM/100 ML BAG IVPB ×6 (00:38→20:44)
[2025-01-07] MEDS: dexAMETHasone SOD PHOS INJ 10 MG/ML 1 ML VIAL IV PUSH ×4 (02:32→20:35)
[2025-01-07] MEDS: ACYCLOVIR SODIUM IVPB 1,000 MG in DEXTROSE 5% IN WATER 250 ML 250 MG IVPB ×3 (02:35→17:25)
[2025-01-07] MEDS: LACTATED RINGERS 1,000 ML 100 ML IV CONT (02:38)
[2025-01-07 04:53] LABS: Basophils Percent Auto 0.1 % (0.2-1.2); Eosinophils Percent Auto 0.2 % (0-4.4); Hematocrit 52.8 % (42.0-52.0); Hemoglobin 17.6 g/dL (14.0-18.0); Immature Granulocyte Absolute 0.08 K/mm3 (0.00-0.031); Immature Granulocyte Percent A 0.8 % (0-0.5); Lymphocytes Absolute Auto 0.69 K/mm3 (0.9-3.2); Lymphocytes Percent Auto 6.5 % (18.3-44.2); Mean Corpuscular HGB Conc 33.3 g/dl (32-36); Mean Corpuscular Hemoglobin 30.1 pg (26-34); Mean Corpuscular Volume 90.3 fl (80-100); Mean Platelet Volume 11.2 fl (7.4-10.4); Monocytes Absolute Auto 0.3 K/mm3 (0.1-0.6); Monocytes Percent Auto 2.5 % (2.6-8.5); Neutrophils Absolute Auto 9.5 K/mm3 (1.3-6.7); Neutrophils Percent Auto 89.9 % (45.5-73.1); Platelet Count Result 221 k/mm3 (150-375); Red Blood Count 5.85 M/mm3 (4.6-6.20); Red Cell Distribution Width 14.5 % (11.5-14.5); White Blood Count 10.6 K/mm3 (4.5-10.0)
[2025-01-07 05:10] LABS: Alanine Aminotransferase 64 U/L (6-50); Alkaline Phosphatase 59 U/L (38-126); Anion Gap 6 mmol/L (4-12); Aspartate Amino Transferase 48 U/L (17-59); Bilirubin,Total 0.8 mg/dL (0.2-1.3); Blood Urea Nitrogen 20 mg/dL (9-20); Calcium 8.1 mg/dL (8.4-10.2); Carbon Dioxide 22 mmol/L (22-30); Chloride 103 mmol/L (98-107); Estimated CRCL calculation 74 ml/min; Estimated Glomerular Filt Rate > 60; Glucose 205 mg/dL (65-110); Magnesium 1.8 mg/dL (1.6-2.3); Phosphorus 2.5 mg/dL (2.5-4.5); Potassium 4.7 mmol/L (3.4-5.0); Sodium 131 mmol/L (137-145)
[2025-01-07 05:37] LABS: Thyroid Stimulating Hormone Reflex 0.876 uIU/mL (0.465-4.68)
[2025-01-07] MEDS: amLODIPine BESYLATE 5 MG TABLET PO (08:38)
[2025-01-07] MEDS: LOSARTAN POTASSIUM 100 MG TABLET PO (08:38)
[2025-01-07] MEDS: ENOXAPARIN 40 MG/0.4 ML SYRINGE SUB-Q (08:38)
[2025-01-07] MEDS: hydroCHLOROthiazide 12.5 MG CAPSULE PO (08:38)
[2025-01-07] MEDS: BENZONATATE 100 MG CAPSULE 200 MG PO ×3 (09:08→17:25)
[2025-01-07] MEDS: VANCOMYCIN 1,500 MG/NS 500 ML 1,500 MG/500 ML BAG 250 MG IVPB (09:08)
[2025-01-07] MEDS: FUROSEMIDE INJ 40 MG/4 ML VIAL IV PUSH (09:08)
[2025-01-07] MEDS: guaiFENesin 12 HR 600 MG TABCR PO ×2 (09:08→20:43)
--- NOTE | 2025-01-07 09:13 | P.CONCA_ITS ---
Assessment and Plan Assessment and plan (1) Elevated troponin: Code(s): R79.89 - Other specified abnormal findings of blood chemistry Status: Acute Plan 1. Elevated troponin level 2. Altered mental status 3. Hypertension PLAN: -EKG with sinus rhythm, possible left atrial enlargement, LVH with secondary STTW abnormality. Elevated troponin level is minimally elevated and flat. No chest pain or other cardiac symptoms. Unlikely to be an acute coronary syndrome. Will obtain echocardiogram. If echocardiogram without significant abnormality, then no additional cardiac workup recommended. History of Present Illness History of Present Illness Consult date/time: 01/07/25 09:13 Requesting physician: Olamide Augustin MD Consult reason: Other (Elevated troponin ) Reason For Visit: Headache/Encephalopathy/NSTEMI Narrative: We are consulted for elevated troponin. Delio is a 54 year old male with hypertension and depression who presented with confusion, headache and dizziness. On 01/04, patient developed a headache and tingling to hands/forearms. Symptoms persisted into 01/05. Noted to be confused as well. Concern for meningitis, therefore, patient underwent lumbar puncture. No chest pain or other cardiac specific symptoms. Workup shows troponin of 0.049, 0.048, 0.030. Head and neck CTA unremarkable. CXR with clear lungs. CTA C/A/P with no abnormalities. EKG with sinus rhythm, possible left atrial enlargement, LVH with secondary STTW abnormality. Review of Systems 2 Review of Systems: All systems reviewed & are unremarkable except as noted in HPI and below (HPI) [facility] Past Medical History Medical History History of depression History of hypertension Family History Family History Father Cerebrovascular accident Social History Social History Smoking status: Never smoker Substance use: never Do You Feel Safe in your Home?: Yes Lack of Transportation: No Lack of Food: Never True Current Housing: I Have Housing Concerned About Future Housing: No Difficulty Paying Gas/Electric Bills: No Difficulty Paying for Meds: No Currently Unemployed: No Education: Bachelor's Degree Difficulty w/ Childcare or Family Care: No Gender identity (if verbalized by the patient): Male Spiritual care concerns: No Meds Home Medications and Allergies Home Medications ?Medication ?Instructions ?Recorded ?Confirmed ?Type amlodipine 5 mg tablet (Norvasc) 5 mg PO DAILY 02/09/20 01/06/25 History losartan 100 1 tablet PO DAILY 02/09/20 01/06/25 History mg-hydrochlorothiazide 12.5 mg tablet Allergies Allergy/AdvReac Type Severity Reaction Status Date / Time No Known Allergies Allergy Verified 01/06/25 03:37 Vital Signs Vital Signs - 24 hr 01/06/25 10:15 01/06/25 12:30 01/06/25 14:00 Temperature 36.6 C Pulse Rate 83 81 75 Respiratory Rate 20 18 Blood Pressure 157/80 H 140/76 Pulse Oximetry 96 97 Oxygen Delivery Fraction of Inspired Oxygen 01/06/25 16:00 01/06/25 16:00 01/06/25 16:00 Temperature 36.4 C Pulse Rate 78 75 Respiratory Rate 18 Blood Pressure 124/74 Pulse Oximetry 100 Oxygen Delivery Room Air Fraction of Inspired Oxygen 01/06/25 18:00 01/06/25 20:00 01/06/25 20:00 Temperature 36.7 C Pulse Rate 74 90 92 Respiratory Rate 16 Blood Pressure 124/66 Pulse Oximetry 100 Oxygen Delivery Room Air Fraction of Inspired Oxygen 01/06/25 20:00 01/06/25 21:24 01/06/25 22:00 Temperature Pulse Rate 92 87 88 Respiratory Rate 20 Blood Pressure Pulse Oximetry 96 Oxygen Delivery Room Air Fraction of Inspired Oxygen 21 01/07/25 00:00 01/07/25 00:00 01/07/25 00:00 Temperature 36.7 C Pulse Rate 81 81 89 Respiratory Rate 17 Blood Pressure 116/92 H Pulse Oximetry 100 Oxygen Delivery Room Air Fraction of Inspired Oxygen 01/07/25 02:10 01/07/25 03:57 01/07/25 04:00 Temperature Pulse Rate 82 76 100 Respiratory Rate Blood Pressure Pulse Oximetry Oxygen Delivery Room Air Fraction of Inspired Oxygen 01/07/25 04:00 01/07/25 06:00 01/07/25 08:00 Temperature 36.5 C 36.7 C Pulse Rate 83 82 88 Respiratory Rate 16 20 Blood Pressure 115/63 143/68 H Pulse Oximetry 100 94 Oxygen Delivery Fraction of Inspired Oxygen Exam 2 Const: General: no acute distress HENMT: Mouth: Yes moist mucous membranes Eyes: General: appearance normal, both eyes and all related structures S clera: sclerae normal Resp: Effort & Inspection: normal respiratory effort Cardio: Rate: regular rate Rhythm: regular rhythm Heart sounds: no murmurs Skin: General skin exam: normal color Neuro: Speech: normal speech Psych: Mental Status: mental status grossly normal Affect: normal affect Results Labs and Meds 01/07/25 04:22 01/07/25 04:22 Lab results: Cardiac Enzymes 01/06/25 01/07/25 Range/Units 16:55 04:22 AST 48 (17-59) U/L Troponin I 0.030 (0.000-0.034) ng/mL CBC 01/07/25 Range/Units 04:22 WBC 10.6 H (4.5-10.0) K/mm3 RBC 5.85 (4.6-6.20) M/mm3 Hgb 17.6 (14.0-18.0) g/dL Hct 52.8 H (42.0-52.0) % Plt Count 221 (150-375) k/mm3 Lymph # (Auto) 0.69 L (0.9-3.2) K/mm3 [place] # (Auto) 0.3 (0.1-0.6) K/mm3 Eos # (Auto) 0.0 (0-0.3) K/mm3 Baso # (Auto) 0.0 (0.0-0.1) K/mm3 Comprehensive Metabolic Panel 01/07/25 Range/Units 04:22 Sodium 131 L (137-145) mmol/L Potassium 4.7 (3.4-5.0) mmol/L Chloride 103 (98-107) mmol/L Carbon Dioxide 22 (22-30) mmol/L BUN 20 (9-20) mg/dL Creatinine 1.24 (0.7-1.3) mg/dL Glucose 205 H (65-110) mg/dL Calcium 8.1 L (8.4-10.2) mg/dL AST 48 (17-59) U/L ALT 64 H (6-50) U/L Alkaline Phosphatase 59 (38-126) U/L Total Protein 6.0 L (6.3-8.2) g/dL Albumin 3.0 L (3.5-5.1) g/dL Intake and Output 01/06/25 01/07/25 01/07/25 23:59 07:59 15:59 Intake Total 710 1151.7 240 Balance 710 1151.7 240 Intake: IV 470 1151.7 Lactated Ringers 1,000 ml @ 100 951.7 mls/hr IV CONT .Q10H ANJEL Rx#: [id number] Acyclovir Sodium Ivpb 1,000 mg 270 In Dextrose 5% in Water 250 ml @ 250 mls/hr IVPB Q8H ANJEL Rx#: [id number] Ampicillin 2 gm/Ns 100 ml 2 gm 200 200 In 100 ml @ 200 mls/hr IVPB Q4H ANJEL Rx#:[id number] Oral 240 240 Other: # Unmeasured Voids 1 3 Patient Weight 01/07/25 23:59 Weight 107.7 kg
[2025-01-07] MEDS: LORazepam INJ (*CRX) 2 MG/ML VIAL IV PUSH (11:59)
[2025-01-07] MEDS: ALPRAZolam (*CRX) 0.25 MG TABLET PO (12:05)
[2025-01-07 14:09] LABS: Lyme Disease Ab (IgM), Blot NEGATIVE (NEGATIVE); Lyme Disease Ab(IgG), Blot NEGATIVE (NEGATIVE)
[2025-01-07 14:31] LABS: Glucose CSF 117 mg/dL (40-70); Total Protein CSF 99 mg/dL (12-60)
[2025-01-07 14:58] LABS: Appearance CSF Clear (Clear); CSF source CSF; Color CSF Colorless (Colorless)
[2025-01-07 15:09] LABS: Nucleated Cell CSF 6 /uL (0-5)
[2025-01-07 15:10] LABS: Red Blood Cell CSF 12 (0-2)
[2025-01-07 15:11] LABS: Lymphocytes CSF 14 % (40-80); Monocytes CSF 78 % (15-45); Neutrophils CSF 8 % (0-6)
--- NOTE | 2025-01-07 18:45 | P.PNIM_ITS ---
Progress Note: A&P Assessment and Plan (1) AMS (altered mental status): Qualifiers: Altered mental status type: disorientation Qualified Code(s): R41.0 - Disorientation, unspecified Code(s): R41.82 - Altered mental status, unspecified Status: Acute Assessment and Plan: Intermittent AMS since Sunday on 01/04 around midnight. - Head/Neck CTA: unremarkable exam - Brain MRI completed, awaiting read - LP completed, awaiting results - started on prophylactic medications for meningitis (viral and bacterial): Acyclovir, ampicillin, vancomycin - dexamethasone q.6 - neuro checks q.4 - UA not consistent with UTI - CXR showed clear lungs - CTA chest/abdomen/pelvis was unremarkable (2) Non-ST elevation LA (NSTEMI): Code(s): I21.4 - Non-ST elevation (NSTEMI) myocardial infarction Status: Deleted Assessment and Plan: - EKG, initial: Sinus rhythm, possible left atrial enlargement, possible right ventricular conduction delay, LVH and ST-T change - EKG, repeat (1): No significant changes when compared to previous EKG - Troponin: 0.049 -> 0.048, third ordered - cardiology consulted, awaiting recs - nitro SL prn - telemetry monitoring (3) Elevated hemoglobin: Code(s): D58.2 - Other hemoglobinopathies Status: Acute Assessment and Plan: - Hgb 19.8, previously 16.4 - 17.5 - coupled with high specfic gravity and ketones in the urine, suspect mild dehydration. Rehydrate with LR at 100 mL/hr x2L - monitor (4) HTN (hypertension): Qualifiers: Hypertension type: primary hypertension Qualified Code(s): I10 - Essential (primary) hypertension Code(s): I10 - Essential (primary) hypertension Status: Chronic Assessment and Plan: - chronic, currently 124/74 - continue home medications: Amlodipine, losartan, hydrochlorothiazide - monitor Plan patient stats he was doing weight lifting and had energy drink prior to work out and felt funny during his workout and developed GRAY, unable concentrate and was not able to text clearly. 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 Diet: Heart healthy GI Prophylaxis: Not currently indicated DVT Prophylaxis: Lovenox SQ IV fluids: LR 100 mL/hour x2 L Lines/Tubes: Peripheral IV Code Status: Full code Subjective Date/time seen: 01/07/25 18:45 Interval history: Headache, Dizziness H&P-Narrative: 54 y/o M with PMH of hypertension and depression presents here with splitting headache, dizziness, and confusion. The patient presents here from home for further evaluation of headache, dizziness, and confusion. He reports onset around midnight on Sunday (01/04). He was working out when you developed a headache and tingling to his hands/forearms. Symptoms persisted into Sunday and did not improve. Patient's provided collateral, reports the patient was texting her and did not make sense Sunday night. He could not remember his passwords that night. He also repeatedly asked her what day it was. He describes the headache as the worst headache he has ever had/does not normally get headaches, temporal, nonradiat ing, constant, and no alleviating or aggravating factors. Initial VS at presentation: 97.7? F, HR 69, R 22, 154/100, and 98% on RA. ED workup showed: WBC 11.5, hemoglobin 19.8 (previously 17.2 in 2019), sodium 131, glucose 125, calcium 8.2/albumin 3.3, initial troponin 0.049, CK 298, BNP 456 (normal for age), UA showed high specific gravity/3+ protein/2+ glucose/trace ketones/2.0 urobilinogen, UDS negative, salicylates and acetaminophen negative, viral PCR negative. Head/neck CTA was unremarkable. CXR showed clear lungs. CTA chest/abdomen/pelvis showed no significant abnormalities. patient stats he was doing weight lifting and had energy drink prior to work out and felt funny during his workout and developed GRAY, unable concentrate and was not able to text clearly. 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 Review of Systems Review of Systems: All systems reviewed & are unremarkable except as noted in HPI and below Exam Narrative: Patient is comfortable, NAD HEENT: eyes are clear and none icteric LUNGS:CTA HEART: RR S1S2 ABD: BS+, Soft and nontender Lower extremities: no edema SKIN: nonjaundiced Neuro: grossly intact. Objective Data Vital Signs Vital Signs: Vital Signs - 24 hr 01/06/25 20:00 01/06/25 20:00 01/06/25 20:00 Temperature 36.7 C Pulse Rate 90 92 92 Respiratory Rate 16 Blood Pressure 124/66 Pulse Oximetry 100 Oxygen Delivery Room Air Fraction of Inspired Oxygen 01/06/25 21:24 01/06/25 22:00 01/07/25 00:00 Temperature Pulse Rate 87 88 81 Respiratory Rate 20 Blood Pressure Pulse Oximetry 96 Oxygen Delivery Room Air Room Air Fraction of Inspired Oxygen 21 01/07/25 00:00 01/07/25 00:00 01/07/25 02:10 Temperature 36.7 C Pulse Rate 81 89 82 Respiratory Rate 17 Blood Pressure 116/92 H Pulse Oximetry 100 Oxygen Delivery Fraction of Inspired Oxygen 01/07/25 03:57 01/07/25 04:00 01/07/25 04:00 Temperature 36.5 C Pulse Rate 76 100 83 Respiratory Rate 16 Blood Pressure 115/63 Pulse Oximetry 100 Oxygen Delivery Room Air Fraction of Inspired Oxygen 01/07/25 06:00 01/07/25 08:00 01/07/25 08:00 Temperature 36.7 C Pulse Rate 82 88 Respiratory Rate 20 Blood Pressure 143/68 H Pulse Oximetry 94 Oxygen Delivery Room Air Fraction of Inspired Oxygen 01/07/25 08:00 01/07/25 10:00 01/07/25 12:00 Temperature Pulse Rate 82 87 Respiratory Rate Blood Pressure Pulse Oximetry Oxygen Delivery Room Air Fraction of Inspired Oxygen 01/07/25 12:00 01/07/25 12:45 01/07/25 13:13 Temperature 36.8 C Pulse Rate 96 99 96 Respiratory Rate 18 24 H Blood Pressure 154/76 H 143/87 H Pulse Oximetry 99 98 Oxygen Delivery Fraction of Inspired Oxygen 01/07/25 13:50 01/07/25 14:00 01/07/25 16:00 Temperature 36.8 C Pulse Rate 92 88 90 Respiratory Rate 20 18 Blood Pressure 126/77 146/76 H Pulse Oximetry 96 98 Oxygen Delivery Fraction of Inspired Oxygen 01/07/25 16:00 Temperature Pulse Rate Respiratory Rate Blood Pressure Pulse Oximetry Oxygen Delivery Room Air Fraction of Inspired Oxygen Intake/Output Intake/Output: Intake & Output 01/04/25 01/05/25 01/06/25 01/07/25 23:59 23:59 23:59 23:59 Intake Total 1780 3171.7 Balance 1780 3171.7 Meds/Results Medications: Active Medications Generic Name Dose Route Start Last Admin Trade Name Freq PRN Reason Stop Dose Admin Acetaminophen 650 mg 01/06/25 09:06 Acetaminophen 325 Mg Tablet PO Q4H PRN Mild Pain (1-3) or Fever Alprazolam 0.25 mg 01/06/25 21:05 01/07/25 12:05 Alprazolam (*Crx) 0.25 Mg Tablet PO 0.25 mg ONCE PRN Administration 30 min prior to MRI Amlodipine Besylate 5 mg 01/07/25 09:00 01/07/25 08:38 Amlodipine Besylate 5 Mg Tablet PO 5 mg DAILY ANJEL Administration Benzonatate 200 mg 01/07/25 09:00 01/07/25 17:25 Benzonatate 100 Mg Capsule PO 200 mg TID ANJEL Administration Dexamethasone Sodium Phosphate 10 mg 01/06/25 08:30 01/07/25 14:38 Dexamethasone Sod Phos Inj 10 Mg/Ml 1 Ml Vial IV PUSH 01/10/25 08:29 10 mg Q6H ANJEL Administration Enoxaparin Sodium 40 mg 01/07/25 09:00 01/07/25 08:38 Enoxaparin 40 Mg/0.4 Ml Syringe SUB-Q 40 mg DAILY ANJEL Administration Guaifenesin 600 mg 01/07/25 09:00 01/07/25 09:08 Guaifenesin 12 Hr 600 Mg Tabcr PO 600 mg Q12HR ANJEL Administration Hydrochlorothiazide 12.5 mg 01/07/25 09:00 01/07/25 08:38 Hydrochlorothiazide 12.5 Mg Capsule PO 12.5 mg QAM ANJEL Administration Ampicillin Sodium 2 gm in 100 mls @ 200 mls/hr 01/06/25 13:00 01/07/25 17:24 Ampicillin 2 Gm/Ns 100 Ml IVPB 200 mls/hr Q4H ANJEL Administration Vancomycin HCl 1,500 mg in 500 mls @ 250 mls/hr 01/06/25 22:00 01/07/25 09:08 Vancomycin 1,500 Mg/Ns 500 Ml IVPB 250 mls/hr Q12H ANJEL Administration Acyclovir Sodium 1,000 mg/ 270 mls @ 250 mls/hr 01/06/25 10:00 01/07/25 17:25 Dextrose IVPB 250 mls/hr Q8H ANJEL Administration Lorazepam 1 mg 01/06/25 14:21 01/06/25 14:47 Lorazepam Inj (*Crx) 2 Mg/Ml Vial IV PUSH 1 mg ONCE PRN Administration 10 mins before MRI Lorazepam 2 mg 01/06/25 19:23 01/07/25 11:59 Lorazepam Inj (*Crx) 2 Mg/Ml Vial IV PUSH 2 mg ONCE PRN Administration 30 mins prior to MRI Losartan Potassium 100 mg 01/07/25 09:00 01/07/25 08:38 Losartan Potassium 100 Mg Tablet PO 100 mg DAILY ANJEL Administration Nitroglycerin 0.4 mg 01/06/25 16:33 Nitroglycerin Sl 0.4 Mg Tablet SUBLINGUAL Q5MIN PRN Chest Pain Ondansetron HCl 4 mg 01/06/25 09:06 Ondansetron Inj 4 Mg/2 Ml Vial IV PUSH Q4H PRN Nausea Perflutren Lipid Microsphere 0 ml 01/07/25 09:51 Perflutren Lipid Microspheres 1.5 Ml Vial Diluted To 10 Ml Total Volume IV PUSH 01/10/25 09:51 ONCE PRN adequate visualization Protocol Radiology Results: ITS Impressions Head/Neck CTA 01/06/25 06:47 Impression: Unremarkable exam. Chest X-Ray 01/06/25 06:49 Impression: Clear lungs. Chest/Abdomen/Pelvis CTA 01/06/25 08:18 Impression: No significant abnormalities seen. Brain MRI 01/07/25 13:14 IMPRESSION: 1. Small acute infarct in the posterior right lentiform nucleus. No other acute intracranial process or abnormally enhancing brain lesions. Lumbar Puncture Fluoroscopy 01/07/25 14:04 IMPRESSION: 1. Successful fluoro-guided lumbar puncture with borderline elevated opening pressure of 20 cm water. Labs Labs: Laboratory Results - last 24 hr 01/06/25 01/07/25 01/07/25 10:16 04:22 13:29 WBC 10.6 H RBC 5.85 Hgb 17.6 Hct 52.8 H MCV 90.3 MCH 30.1 MCHC 33.3 RDW 14.5 Plt Count 221 MPV 11.2 H Immature Gran % (Auto) 0.8 H Neut % (Auto) 89.9 H Lymph % (Auto) 6.5 L [place] % (Auto) 2.5 L Eos % (Auto) 0.2 Baso % (Auto) 0.1 L Lymph # (Auto) 0.69 L [place] # (Auto) 0.3 Eos # (Auto) 0.0 Baso # (Auto) 0.0 Abs Immat Gran (auto) 0.08 H Absolute Neuts (auto) 9.5 H Absolute Nucleated RBC 0.000 Nucleated RBC % 0.0 Sodium 131 L Potassium 4.7 Chloride 103 Carbon Dioxide 22 Anion Gap 6 BUN 20 Creatinine 1.24 Estim Creat Clear Calc 74 Estimated GFR > 60 Glucose 205 H Calcium 8.1 L Phosphorus 2.5 Magnesium 1.8 Total Bilirubin 0.8 AST 48 ALT 64 H Alkaline Phosphatase 59 Total Protein 6.0 L Albumin 3.0 L TSH (Reflex) 0.876 CSF Source Csf CSF Appearance Clear CSF Color Colorless CSF RBC 12 H CSF Tot Nucleated Cells 6 H CSF Neutrophils 8 H CSF Lymphocytes 14 L CSF Monocytes 78 H CSF Glucose CSF Total Protein [place]yme IgG 18 kDa Band Non-reactive [place] IgG 23 kDa Band Non-reactive [place] IgG 28 kDa Band Non-reactive [place] IgG 30 kDa Band Non-reactive [place] IgG 39 kDa Band Non-reactive [place] IgG 41 kDa Band Reactive A [place]yme IgG 45 kDa Band Non-reactive [place]yme IgG 58 kDa Band Non-reactive [place] IgG 66 kDa Band Non-reactive [place] IgG 93 kDa Band Non-reactive [place] IgG Ab (Immblot) Negative Lyme IgM Ab (Immblot) Negative Lyme IgM 23 kDa Band Non-reactive [place]yme IgM 39 kDa Band Non-reactive [place] IgM 41 kDa Band Reactive A 01/07/25 13:43 WBC RBC Hgb Hct MCV MCH MCHC RDW Plt Count MPV Immature Gran % (Auto) Neut % (Auto) Lymph % (Auto) [place] % (Auto) Eos % (Auto) Baso % (Auto) Lymph # (Auto) [place] # (Auto) Eos # (Auto) Baso # (Auto) Abs Immat Gran (auto) Absolute Neuts (auto) Absolute Nucleated RBC Nucleated RBC % Sodium Potassium Chloride Carbon Dioxide Anion Gap BUN Creatinine Estim Creat Clear Calc Estimated GFR Glucose Calcium Phosphorus Magnesium Total Bilirubin AST ALT Alkaline Phosphatase Total Protein Albumin TSH (Reflex) CSF Source CSF Appearance CSF Color CSF RBC CSF Tot Nucleated Cells CSF Neutrophils CSF Lymphocytes CSF Monocytes CSF Glucose 117 H CSF Total Protein 99 H Lyme IgG 18 kDa Band Lyme IgG 23 kDa Band Lyme IgG 28 kDa Band Lyme IgG 30 kDa Band Lyme IgG 39 kDa Band Lyme IgG 41 kDa Band Lyme IgG 45 kDa Band Lyme IgG 58 kDa Band Lyme IgG 66 kDa Band Lyme IgG 93 kDa Band Lyme IgG Ab (Immblot) Lyme IgM Ab (Immblot) Lyme IgM 23 kDa Band Lyme IgM 39 kDa Band Lyme IgM 41 kDa Band Quality VTE Prophylaxis VTE prophylaxis: pharmacologic ordered
[2025-01-07 21:25] LABS: Vancomycin Trough 8.3 ug/mL (10.0-20.0)
[2025-01-07] MEDS: VANCOMYCIN 2,000 MG/NS 500 ML 2,000 MG/500 ML BAG 250 MG IVPB (22:19)
[2025-01-08] VITALS (11 sets, daily range): BP systolic 121–162; BP diastolic 69–79; PULSE 77–99; RESP 16–20; TEMP 36.4–36.8; O2SAT 94–96
[2025-01-08] MEDS: AMPICILLIN 2 GM/NS 100 ML 2 GM/100 ML BAG IVPB ×3 (00:04→08:24)
[2025-01-08] MEDS: ACYCLOVIR SODIUM IVPB 1,000 MG in DEXTROSE 5% IN WATER 250 ML 250 MG IVPB ×2 (02:27→10:24)
[2025-01-08] MEDS: dexAMETHasone SOD PHOS INJ 10 MG/ML 1 ML VIAL IV PUSH ×2 (02:27→08:24)
[2025-01-08] MEDS: SODIUM CHLORIDE 0.9% IV 250 ML 30 ML (02:31)
[2025-01-08 04:59] LABS: Estimated CRCL calculation 77 ml/min; Estimated Glomerular Filt Rate > 60
[2025-01-08] MEDS: VANCOMYCIN 2,000 MG/NS 500 ML 2,000 MG/500 ML BAG 250 MG IVPB (05:27)
[2025-01-08] MEDS: FUROSEMIDE INJ 40 MG/4 ML VIAL IV PUSH (08:24)
[2025-01-08] MEDS: amLODIPine BESYLATE 5 MG TABLET PO (08:24)
[2025-01-08] MEDS: ENOXAPARIN 40 MG/0.4 ML SYRINGE SUB-Q (08:24)
[2025-01-08] MEDS: BENZONATATE 100 MG CAPSULE 200 MG PO ×2 (08:25→13:28)
[2025-01-08] MEDS: guaiFENesin 12 HR 600 MG TABCR PO (08:25)
[2025-01-08] MEDS: hydroCHLOROthiazide 12.5 MG CAPSULE PO (08:25)
[2025-01-08] MEDS: LOSARTAN POTASSIUM 100 MG TABLET PO (08:25)
--- NOTE | 2025-01-08 16:01 | PM.DS ---
DS: Admitting Diagnosis Discharge Date 01/08/25 Admitting Diagnosis Headache, Dizziness DS: Discharge Diagnosis Discharge Diagnosis (1) AMS (altered mental status): Qualifiers: Altered mental status type: disorientation Qualified Code(s): R41.0 - Disorientation, unspecified Code(s): R41.82 - Altered mental status, unspecified Status: Acute Assessment and Plan: Intermittent AMS since Sunday on 01/04 around midnight. - Head/Neck CTA: unremarkable exam - Brain MRI completed, awaiting read - LP completed, awaiting results - started on prophylactic medications for meningitis (viral and bacterial): Acyclovir, ampicillin, vancomycin - dexamethasone q.6 - neuro checks q.4 - UA not consistent with UTI - CXR showed clear lungs - CTA chest/abdomen/pelvis was unremarkable (2) Non-ST elevation MT (NSTEMI): Code(s): I21.4 - Non-ST elevation (NSTEMI) myocardial infarction Status: Deleted Assessment and Plan: - EKG, initial: Sinus rhythm, possible left atrial enlargement, possible right ventricular conduction delay, LVH and ST-T change - EKG, repeat (1): No significant changes when compared to previous EKG - Troponin: 0.049 -> 0.048, third ordered - cardiology consulted, awaiting recs - nitro SL prn - telemetry monitoring (3) Elevated hemoglobin: Code(s): D58.2 - Other hemoglobinopathies Status: Acute Assessment and Plan: - Hgb 19.8, previously 16.4 - 17.5 - coupled with high specfic gravity and ketones in the urine, suspect mild dehydration. Rehydrate with LR at 100 mL/hr x2L - monitor (4) HTN (hypertension): Qualifiers: Hypertension type: primary hypertension Qualified Code(s): I10 - Essential (primary) hypertension Code(s): I10 - Essential (primary) hypertension Status: Chronic Assessment and Plan: - chronic, currently 124/74 - continue home medications: Amlodipine, losartan, hydrochlorothiazide - monitor Plan patient stats he was doing weight lifting and had energy drink prior to work out and felt funny during his workout and developed GRAY, unable concentrate and was not able to text clearly. 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 Diet: Heart healthy GI Prophylaxis: Not currently indicated DVT Prophylaxis: Lovenox SQ IV fluids: LR 100 mL/hour x2 L Lines/Tubes: Peripheral IV Code Status: Full code DS: Summary Hospital Course Hospital Course: patient stats he was doing weight lifting and had energy drink prior to work out and felt funny during his workout and developed GRAY, was unable to concentrate and was not able to text clearly. 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 There is no [id number] shunt by bubble study. patient is clinically stable, and will follow up with his primary care provider. Time Spent with Patient Time attestation: Total time spent providing and/or coordinating discharge services: Exam Narrative: Patient is comfortable, NAD HEENT: eyes are clear and none icteric LUNGS:CTA HEART: RR S1S2 ABD: BS+, Soft and nontender Lower extremities: no edema SKIN: nonjaundiced Neuro: grossly intact. DS: Data Data Completed and Pending Labs on day of discharge: Labs from last 24 hours 01/08/25 01/07/25 04:23 20:58 Creatinine 1.19 Estim Creat Clear Calc 77 Estimated GFR > 60 Vancomycin Trough 8.3 L Preliminary micro results at discharge 01/06/25 10:11 Blood Culture - Preliminary Blood 01/06/25 10:11 Blood Culture - Preliminary Blood Discharge Plan Discharge Attending physician on discharge: Taiwo Vidal Consulting providers: Catrachito Soriano; Daryl Wall; Roxana Fink; Modesto Oleary; Sedrick Steel; Srinivasa Rodriguez Discharging Clinician: Taiwo Vidal Patient Disposition: Home Activity: as tolerated Diet: heart healthy Discharge Instructions: patient is instructed to avoid extra strenuous exercise, take his medication, control his blood pressure, patient to take daily aspirin and his statin, patient to follow up with his primary care provider as soon as possible, patient is instructed if any symptoms worsen to go to nearest ER. Patient Instructions: Antibiotic Form Patient Language: Pashto Stand Alone Forms: General Discharge Information, Work/School Release IP Follow-up/Referrals: Catrachito Soriano MD [Physician] - PHYSICIAN,[employer] [Primary Care Provider] - Discharge Medications: New benzonatate 100 mg Capsule 200 mg PO TID Qty: 30 0RF guaifenesin [Mucus Relief ER] 600 mg Tablet Extended Release 12hr 600 mg PO Q12HR Qty: 30 0RF Saccharomyces boulardii [Florastor] 250 mg Capsule 250 mg PO BID Qty: 60 0RF aspirin 81 mg tablet 81 mg PO DAILY Qty: 30 0RF atorvastatin [Lipitor] 40 mg tablet 40 mg PO DAILY Qty: 30 0RF Continued amlodipine [Norvasc] 5 mg tablet 5 mg PO DAILY Qty: 30 0RF losartan-hydrochlorothiazide 100-12.5 mg tablet 1 tablet PO DAILY Date of admission: 01/06/25 09:06 Primary Care Provider: PHYSICIAN,[employer]KER Admitting Provider: Taiwo Vidal Attending physician on admission: Taiwo Vidal Condition: Stable
[2025-01-08] MEDS: SACCHAROMYCES BOULARDII 250 MG CAPSULE PO (16:17)
[2025-01-08] MEDS: CALCIUM CARBONATE (TUMS) 500 MG (200 MG ELEMENTAL) PO (16:17)
[2025-01-10 05:39] LABS: Source NOT GIVEN
[2025-01-11 21:39] LABS: Cryptococcus Antigen NOT DETECTED; Cryptococcus Specimen Source SERUM
[2025-01-15 10:41] LABS: Epstein Barr Virus DNA PCR NOT DETECTED
[2025-01-15 12:07] LABS: Immunoglobulin G, Serum 668
[2025-01-15 12:10] LABS: Albumin, CSF 25.6; IgG, CSF 3.8
[2025-01-15 23:18] LABS: Albumin, Serum 2.7 g/dL (3.6-5.1); Myelin Basic Protein, CSF <2.0 mcg/L (< OR = 4.0); Oligoclonal Bands (IgG), CSF ABSENT (ABSENT)
[2025-01-19 12:25] LABS: Source CSF
[2025-01-19 12:26] LABS: Source Epstein Barr Virus CSF
== END 2025-01-08 16:35 | disposition home or self-care (01) ==
LOC: ANHED 09:52 → ANHIMU 11:19
PROVIDERS: Student in an Organized Health Care Education/Training Program; Admitting Provider Family Medicine; Emergency Provider Student in an Organized Health Care Education/Training Program; Visit Provider Family Medicine
DX: I63.9 Cerebral infarction, unspecified (principal); H53.8 Other visual disturbances; D58.2 Other hemoglobinopathies; R79.89 Other specified abnormal findings of blood chemistry; I10 Essential (primary) hypertension; R06.82 Tachypnea, not elsewhere classified; R74.8 Abnormal levels of other serum enzymes; E88.09 Other disorders of plasma-protein metabolism, not elsewhere classified; F32.A Depression, unspecified; Z20.822 Contact with and (suspected) exposure to COVID-19; Z79.899 Other long term (current) drug therapy
CPT/HCPCS: 36415; 62328; 70496; 70498; 70553; 71045; 71275; 74174; 80053; 80143; 80179; 80202; 80307; 81001; 82040; 82042; 82077; 82140; 82550; 82565; 82784; 82945; 82948; 83605; 83735; 83873; 83880; 83916; 84100; 84157; 84443; 84484; 85025; 85610; 85730; 86403; 86592; 86617; 87015; 87040; 87070; 87102; 87116; 87140; 87206; 87255; 87529; 87637; 87798; 89051; 93005; 93306; 96361; 96365; 96366; 96367; 96372; 96375; 96376; 99285; A9270; A9577; G0378; J0133; J0290; J0696; J0780; J1100; J1200; J1650; J1885; J1938; J2060; J2270; J3370; J7050; J7060; J7120; Q9967